=== PATIENT | male | born 1995 | race Two or more races ===

== ENCOUNTER 2018-05-20 05:46 | Inpatient (IN) | payer OTHER ==
[~2018-05-20] VITALS: Ht 170.2 cm; Wt 69.4 kg
--- NOTE | 2018-05-20 05:55 | NUR ---
Pt came to emergency dept. complaining of SOB, CP, that started about an hour ago. Pt states that his blood sugar has been up and down since his symptoms started. Pt states that he has type 2 diabetes and he has elevated BS of 378 at home. Pt states that he has had nausea,vomitting, and diarrhea on and off for the past week. Pt is AAXO4. Pt put on the monitor and pulse ox. Pt saturating 98% on the pulse ox. Pt pending eval from ER .
--- NOTE | 2018-05-20 06:07 | NUR ---
MARI LYNN AT BEDSIDE.
[2018-05-20] MEDS ORDERED: ONDANSETRON HCL/PF 4 MG/2 ML VIAL ONE (06:11)
[2018-05-20 06:27] LABS: BASOPHILS % (AUTO) 0.3 % (0.0-2.0); EOSINOPHILS % (AUTO) 0.2 % (0.0-6.0); HEMATOCRIT 53 % (39-51); HEMOGLOBIN 17.8 g/dL (13.5-17.5); LYMPHOCYTES # (AUTO) 0.9 /CMM (0.8-4.8); LYMPHOCYTES % (AUTO) 16.4 % (20.0-44.0); MEAN CORPUSCULAR HGB CONC 34 g/dl (31.0-36.0); MEAN CORPUSCULAR VOLUME 88 fL (80-96); MONOCYTES # (AUTO) 0.7 /CMM (0.1-1.30); MONOCYTES % (AUTO) 12.7 % (2.0-12.0); NEUTROPHILS # (AUTO) 3.8 /CMM (1.8-8.9); NEUTROPHILS % (AUTO) 70.4 % (43.0-81.0); PLATELET COUNT (AUTO) 285 /CMM (150-450); RED BLOOD CELL COUNT(AUTO) 6.04 MIL/uL (4.5-6.0); WHITE BLOOD COUNT (AUTO) 5.4 K/uL (4.3-11.0)
[2018-05-20] MEDS ORDERED: IV NS 0.9% 1,000 ML BAG IV ONE (06:30)
[2018-05-20] MEDS ORDERED: ONDANSETRON HCL/PF 4 MG/2 ML VIAL IVP ONE (06:30)
[2018-05-20] MEDS ORDERED: IV NS 0.9% 1,000 ML IV ONE (06:30)
--- NOTE | 2018-05-20 06:30 | NUR ---
Pt being monitored resting in bed, NAD noted. Unable to Urinate ER MD aware.
[2018-05-20 06:43] LABS: ALBUMIN 4.1 g/dL (3.4-5.0); BILIRUBIN,DIRECT 0.1 mg/dL (0.0-0.2); BILIRUBIN,TOTAL 0.6 mg/dL (0.2-1.0); CALCIUM, SERUM 9.7 mg/dL (8.5-10.1); CREATININE 1.8 mg/dL (0.6-1.3); POTASSIUM 3.9 mmol/L (3.5-5.1); TOTAL PROTEIN, SERUM 8.2 g/dL (6.4-8.2)
[2018-05-20] MEDS ORDERED: POTASSIUM CL. PREMIX PERIPHER. 50 ML ONE ×2 (06:49→07:43)
[2018-05-20] MEDS: POTASSIUM CL. PREMIX PERIPHER. 50 ML IV SCH ×4 (06:55→10:48)
--- NOTE | 2018-05-20 07:19 | NUR ---
RT at bedside for ABG.
[2018-05-20 07:21] LABS: ABG BASE EXCESS -7.7 mmol/L; ABG OXYGEN SATURATION 96.7 % (92.0-98.5); ABG PCO2 29.7 mmHg (35.0-45.0); ABG PH 7.356 (7.350-7.450); ABG PO2 93.2 mmHg (75.0-100.0); COHb 0.7 % (0.5-1.5); MetHb 0.5 % (0.0-1.5); O2Hb 95.5 % (94.0-97.0); SITE, ABG Right Radial; VENT MODE, BG room air
--- NOTE | 2018-05-20 07:33 | NUR ---
Report given to Noel BUSTAMANTE for CHARLES.
[2018-05-20 07:43] LABS: APPEARANCE,URINE CLEAR (CLEAR); BILIRUBIN,URINE 1+ (NEGATIVE); BLOOD, URINE NEGATIVE Ery/uL (NEGATIVE); COLOR,URINE YELLOW (YELLOW); KETONES,URINE 3+ (NEGATIVE); LEUKOCYTE ESTERASE ,URINE NEGATIVE (NEGATIVE); NITRITE, URINE NEGATIVE (NEGATIVE); PH,URINE 5.5 (5.0-8.0); PROTEIN,URINE NEGATIVE (NEGATIVE); UGLUCOSE 3+ mg/dL (NEGATIVE); UROBILINOGEN,URINE 0.2 EU/dL (0.2)
[2018-05-20] MEDS ORDERED: POTASSIUM CL. PREMIX PERIPHER. 100 ML ONE (07:47)
[2018-05-20 07:48] LABS: BACTERIA,URINE None seen /HPF (None Seen); RBC,URINE NONE SEEN /HPF (0-2); SQUAMOUS EPITHELIAL CELL,UR Few /HPF (None Seen); WBC,URINE 0-2 /HPF (0-3)
--- NOTE | 2018-05-20 07:48 | NUR ---
PANEL ON-CALL PAGED
[2018-05-20] MEDS ORDERED: INSU100I26 SQ (07:52)
[2018-05-20] MEDS ORDERED: INSU100I34 SQ (07:52)
--- NOTE | 2018-05-20 08:15 | NUR ---
DR. UP GAVE A VERBAL ORDER TO GIVE NS 250ML WITH POTASSIUM IV.
--- NOTE | 2018-05-20 08:22 | NUR ---
REPORT GIVEN TO YESENIA BUSTAMANTE IN ICU, PATIENT IS ASSIGN ROOM 258. Addendum: 05/20/18 at 0931 by MELIDA REPORT GIVEN TO KAITLIN BREWER, PATIENT RE-ASSIGNED TO ROOM 316.
[2018-05-20 08:24] LABS: CALCIUM, SERUM 8.3 mg/dL (8.5-10.1); CREATININE 1.4 mg/dL (0.6-1.3); POTASSIUM 4.4 mmol/L (3.5-5.1)
--- NOTE | 2018-05-20 08:25 | NUR ---
VERIFIED WITH DR. UP IF ITS OK TO GIVE THE REST OF THE POTASSIUM IV (2 BAGS) WITH POTASSIUM LEVEL OF 4.4. PER MD, ITS OK TO GIVE.
[2018-05-20] MEDS ORDERED: INSULIN REGULAR, HUMAN 100 UNIT/ML 10 ML VIAL SQ ONE (08:30)
--- NOTE | 2018-05-20 08:30 | NUR ---
ENDORSED 1 POTASSIUM IV BAG TO KAITLIN BUSTAMANTE.
[2018-05-20] MEDS ORDERED: INSULIN REGULAR, HUMAN 100 UNIT/ML 10 ML VIAL ONE (08:37)
[2018-05-20 09:45] VITALS: BP 138/77
--- NOTE | 2018-05-20 09:45 | NUR ---
STORYBOARD ARTISTCEMENT TRUCK DRIVER NOTE PT ARRIVED TO TELE UNIT IN STABLE CONDITION VIA GURNEY ACCOMPANIED BY 2 ER STAFF. PT IS A/O X4, AFEBRILE. RESPIRATIONS ARE EVEN AND UNLABORED, NOT IN ANY ACUTE DISTRESS NOTED. PUPILS ARE REACTIVE TO LIGHT. BILATERAL HAND RECORD CENTER COORDINATOR ARE STRONG AND EQUAL. DENIES ANY PAIN AT THIS TIME, NO C/O SOB, N/V. LAST URINATION WAS 0730, LAST BM 05/19 PM. PT REFUSES TO CHANGE IN GOWN AND DENIES ANY SKIN ISSUES. EXPLAINED THE IMPORTANCE OF DOING SKIN ASSESSMENT, PT STATED "I DONT HAVE ANYTHING WRONG WITH MY SKIN." IV SITE TO LAC G20 INTACT, NO INFILTRATION NOTED. CURRENTLY INFUSING KCL AND NS, TOLERATING WELL. DR. GARCIA AT BEDSIDE. INSTRUCTED PT TO USE CALL LIGHT WHEN ASSISTANCE IS NEEDED, CALL LIGHT IS LEFT WITHIN REACH. WILL MONITOR THROUGHOUT SHIFT FOR CONTINUITY OF CARE.
--- NOTE | 2018-05-20 09:48 | NUR ---
PATIENT TRANSFERRED TO ROOM 316 VIA ACLS PROTOCOL, ACCOMPANIED BY RN.
[2018-05-20] MEDS ORDERED: Z GUARD REMEDY 2 OZ OINT TP PRN (10:30)
[2018-05-20] MEDS ORDERED: MAG HYDROX/AL HYDROX/SIMETH 30 ML UDC PO PRN (10:30)
[2018-05-20] MEDS ORDERED: MAGNESIUM HYDROXIDE 30 ML UDC PO PRN (10:30)
[2018-05-20] MEDS ORDERED: Potassium Chloride 20 MEQ in IV NS 0.9% 1,000 ML IV SCH (10:30)
[2018-05-20] MEDS ORDERED: HYDROCODONE/APAP 5/325MG 1 EACH TABLET PO PRN (10:30)
[2018-05-20] MEDS ORDERED: DEXTROSE 50%-WATER 50 ML DISP.SYRIN IV PRN (10:30)
[2018-05-20] MEDS: BLOOD SUGAR DIAGNOSTIC 1 EACH STRIP IN SCH ×7 (10:30→23:21)
[2018-05-20] MEDS ORDERED: ACETAMINOPHEN 325 MG TABLET PO PRN (10:30)
--- NOTE | 2018-05-20 10:30 | NUR ---
FUR MACHINE OPERATOR NOTES-- CLARIFIED WITH ER NURSE AND ER DOCTOR RE: ADMINISTRATION OF KCL D/T K LEVEL 4.4. PER DR. UP AND ER NURSE ELIAZAR, "OKAY TO GIVE POTASSIUM." DR. GARCIA MADE AWARE AND STATED "OKAY TO GIVE." WILL CONTINUE TO MONITOR.
[2018-05-20 11:00] VITALS: BP 138/77
[2018-05-20] MEDS ORDERED: IV NS 0.9% 1,000 ML IV PRN (11:00)
[2018-05-20] MEDS: INSULIN REGULAR, HUMAN 100 UNIT/ML 3 ML VIAL SQ PRN ×3 (12:21→21:23)
[2018-05-20 16:00] VITALS: BP 138/87
[2018-05-20 16:04] LABS: CALCIUM, SERUM 8.4 mg/dL (8.5-10.1); CREATININE 1.3 mg/dL (0.6-1.3); POTASSIUM 3.8 mmol/L (3.5-5.1)
--- NOTE | 2018-05-20 17:25 | NUR ---
CENTER MEDICAL AND LAB DIRECTOR NOTES-- PER DR. GARCIA'S NOTES.. "start D5 1/2 NS once BG < 200." WILL START IV FLUIDS AND CONTINUE TO MONITOR.
[2018-05-20] MEDS ORDERED: IV D5/0.45 NACL 1,000 ML IV PRN (17:30)
--- NOTE | 2018-05-20 17:35 | NUR ---
LIFT OPERATOR NOTES-- CLARIFIED WITH DR. GARCIA RE: IV FLUIDS W/ NO EXACT RATE. PER DR. GARCIA, "JUST START AT 100ML/HR THEN CHANGE THE RATE" DEPENDING ON HIS BLOOD SUGAR AND TO REMAIN BG <200.
[2018-05-20] MEDS: IV D5/0.45 NACL 1,000 ML IV PRN (17:55)
[2018-05-20] MEDS ORDERED: IV D5/0.45 NACL 1,000 ML IV ONE (18:00)
--- NOTE | 2018-05-20 18:24 | NUR ---
MS RN CLOSING NOTES ALL DUE MEDS GIVEN, NEEDS MET AND ANTICIPATED. PT IS A/O X4, AFEBRILE. RESPIRATIONS ARE EVEN AND UNLABORED, NOT IN ANY ACUTE DISTRESS NOTED. DENIES ANY CHEST PAIN, SOB, N/V. IV SITE TO LAC INTACT, NO INFILTRATION NOTED. DRESSING KEPT CLEAN AND DRY. ON BLOOD SUGAR CHECKS Q2H, INSULIN Q4H. PT HAS BEEN COMPLIANT. SAFETY MEASURES ARE IN PLACE. REMINDED PT TO USE CALL LIGHT WHEN ASSISTANCE IS NEEDED, CALL LIGHT IS LEFT WITHIN REACH. WILL ENDORSE TO NEXT SHIFT FOR CONTINUITY OF CARE.
[2018-05-20] MEDS: ONDANSETRON HCL/PF 4 MG/2 ML VIAL IVP PRN (19:18)
--- NOTE | 2018-05-20 19:50 | NUR ---
MS RN NOTES-- PT C/O N/V AND LOOSE WATERY STOOLS. NOTIFIED OSMAN CRAWLEY W/ ORDERS FOR COLLECTION OF STOOL FOR CDIFF AND IMODIUM. OSMAN CRAWLEY CARRIED OUT ORDERS. PATIENT AND NIGHTSHIFT NURSE JOSUE MADE AWARE.
[2018-05-20 19:52] LABS: CALCIUM, SERUM 8.7 mg/dL (8.5-10.1); CREATININE 1.2 mg/dL (0.6-1.3); POTASSIUM 3.7 mmol/L (3.5-5.1)
[2018-05-20 20:00] VITALS: BP 143/78
--- NOTE | 2018-05-20 20:45 | NUR ---
RN NOTES SPOKE TO DENISA POTTER AND INFORMED HIM THAT PT. IS ASKING FOR SLEEPING PILL BUT PT IS NPO.. DENISA POTTER ORDERED THAT OK TO GIVEN PO MEDS WITH SIP OF WATER , ORDER NOTED AND CARRIED OUT
[2018-05-20] MEDS: ZOLPIDEM TARTRATE 5 MG TABLET PO PRN (21:16)
[2018-05-20] MEDS: LOPERAMIDE HCL (2 MG CAP) 2 MG CAPSULE PO PRN (21:22)
--- NOTE | 2018-05-20 21:25 | NUR ---
RN NOTES PT. BLOOD SUGAR-282.. SUPPOSED TO GIVE 12 UNITS OF INSULIN BUT PT. WELL THE PT'S MOTHER ONLY WANT ME TO GIVE 8 UNITS OF INSULIN
[2018-05-20 22:50] LABS: CALCIUM, SERUM 8.3 mg/dL (8.5-10.1); CREATININE 1.1 mg/dL (0.6-1.3); POTASSIUM 3.4 mmol/L (3.5-5.1)
--- NOTE | 2018-05-20 23:35 | NUR ---
RN NOTES DR. GARCIA ORDER BMP Q 4HRS .. POTASSIUM LEVEL FROM 3.7- 3.4 AT THIS TIME.. INFORMED DENISA THAKKAR-OSMAN ABOUT THE RESULT OF POTASSIUM -NO ORDER GIVEN AND WAIT FOR THE RESULT OF PT BMP AFTER 4 HRS AGAIN
[2018-05-21] VITALS: BP 125/58
[2018-05-21] MEDS: BLOOD SUGAR DIAGNOSTIC 1 EACH STRIP IN SCH ×9 (01:27→21:37)
--- NOTE | 2018-05-21 01:30 | NUR ---
RN NOTES PT BLOOD SUGAR 214- SUPPOSED TO BE GIVEN 8 UNITS OF INSULIN BUT PT WANT ONLY TO RECEIVED 7UNITS OF INSULIN
[2018-05-21] MEDS: INSULIN REGULAR, HUMAN 100 UNIT/ML 3 ML VIAL SQ PRN ×2 (01:35→05:36)
[2018-05-21] MEDS: IV D5/0.45 NACL 1,000 ML IV PRN (05:37)
[2018-05-21 06:22] LABS: BASOPHILS % (AUTO) 0.3 % (0.0-2.0); EOSINOPHILS % (AUTO) 1.8 % (0.0-6.0); HEMATOCRIT 44 % (39-51); HEMOGLOBIN 14.8 g/dL (13.5-17.5); LYMPHOCYTES # (AUTO) 1.9 /CMM (0.8-4.8); LYMPHOCYTES % (AUTO) 37.2 % (20.0-44.0); MEAN CORPUSCULAR HGB CONC 34 g/dl (31.0-36.0); MEAN CORPUSCULAR VOLUME 87 fL (80-96); MONOCYTES # (AUTO) 0.9 /CMM (0.1-1.30); MONOCYTES % (AUTO) 18.1 % (2.0-12.0); NEUTROPHILS # (AUTO) 2.2 /CMM (1.8-8.9); NEUTROPHILS % (AUTO) 42.6 % (43.0-81.0); PLATELET COUNT (AUTO) 223 /CMM (150-450); RED BLOOD CELL COUNT(AUTO) 5.05 MIL/uL (4.5-6.0); WHITE BLOOD COUNT (AUTO) 5.1 K/uL (4.3-11.0)
[2018-05-21 06:42] LABS: CALCIUM, SERUM 8.4 mg/dL (8.5-10.1); MAGNESIUM 1.7 mg/dL (1.8-2.4); PHOSPHORUS 3.2 mg/dL (2.5-4.9); POTASSIUM 3.2 mmol/L (3.5-5.1)
[2018-05-21 06:56] LABS: BAND % (MANUAL) 5 % (0.0-5.0); EOSINOPHILS % (MANUAL) 3 % (0-4); LYMPHOCYTES % (MANUAL) 25 % (16-48); MONOCYTES % (MANUAL) 21 % (0-11.0); NEUTROPHILS % (MANUAL) 46 (42-76)
--- NOTE | 2018-05-21 06:57 | NUR ---
RN NOTES AWAKE, DENIES PAIN, NO SOB, STILL CONCERNED REGARDING HIS BLOOD SUGAR STILL FLUCTUATING, MORNING CARE RENDERED, DENIES PAIN, NO SOB, PT. NEEDS ATTENDED
[2018-05-21 07:00] LABS: CHOLESTEROL 150 mg/dL (<200); HDL CHOLESTEROL 39 mg/dL (40-60); LDL 90 mg/dL (0-99); TRIGLYCERIDES 159 mg/dL (30-150)
--- NOTE | 2018-05-21 07:44 | NUR ---
FLORIST MANAGER OPENING NOTES RECEIVED PT LAYING IN BED, RESTING. PT IS A/O X4, AFEBRILE. RESPIRATIONS ARE EVEN AND UNLABORED, NOT IN ANY ACUTE DISTRESS NOTED. DENIES ANY CHEST PAIN, N/V, SOB AT THIS TIME. IV SITE TO LAC INTACT, NO INFILTRATION NOTED. DRESSING KEPT CLEAN AND DRY. IV FLUIDS RUNNING AT 75ML/HR, TOLERATING WELL. SAFETY MEASURES ARE IN PLACE. INSTRUCTED PT TO USE CALL LIGHT WHEN ASSISTANCE IS NEEDED, CALL LIGHT IS LEFT WITHIN REACH. WILL MONITOR THROUGHOUT SHIFT FOR CONTINUITY OF CARE.
[2018-05-21 08:00] VITALS: BP 130/80
--- NOTE | 2018-05-21 08:30 | NUR ---
AGRICULTURAL CHEMIST NOTES-- PT WAS SEEN AND EXAMINED BY DR. RADHA Coppola/ ORDERS CARRIED OUT.
[2018-05-21] MEDS ORDERED: Magnesium 1GM/D5W 100ML PREMIX 100 ML IV SCH (09:00)
[2018-05-21] MEDS ORDERED: POTASSIUM CHLORIDE 20 MEQ TAB.PRT.SR PO ONE (09:00)
[2018-05-21] MEDS ORDERED: INSULIN LISPRO/ASPART 100 UNIT/ML CARTRIDGE SQ SCH ×4 (09:00→12:00)
[2018-05-21] MEDS: POTASSIUM CL. PREMIX PERIPHER. 50 ML IV SCH ×4 (09:34→12:55)
[2018-05-21] MEDS: Magnesium 1GM/D5W 100ML PREMIX 100 ML IV SCH ×2 (09:35→10:33)
[2018-05-21] MEDS: INSULIN ASPART/LISPRO 100 UNIT/ML CARTRIDGE SQ PRN ×3 (11:16→22:24)
[2018-05-21] MEDS: ONDANSETRON HCL/PF 4 MG/2 ML VIAL IVP PRN (11:58)
[2018-05-21 16:00] VITALS: BP 141/81
--- NOTE | 2018-05-21 18:08 | NUR ---
MS RN CLOSING NOTES ALL DUE MEDS GIVEN, NEEDS MET AND ANTICIPATED. PT IS A/O X4, AFEBRILE. RESPIRATIONS ARE EVEN AND UNLABORED, NOT IN ANY ACUTE DISTRESS NOTED. DENIES ANY CHEST PAIN, SOB, N/V. IV SITE TO LAC INTACT, NO INFILTRATION NOTED. DRESSING KEPT CLEAN AND DRY. SAFETY MEASURES ARE IN PLACE. ENCOURAGED PT TO DRINK FLUIDS TOLERATED. REMINDED PT TO USE CALL LIGHT WHEN ASSISTANCE IS NEEDED, CALL LIGHT IS LEFT WITHIN REACH. WILL ENDORSE TO NEXT SHIFT FOR CONTINUITY OF CARE.
--- NOTE | 2018-05-21 19:20 | NUR ---
MS RN NOTES RECEIVED PT ALERT AND AWAKE IN BED WITH FAMILY AT BEDSIDE. PT IS A/O X4 AND ABLE TO MAKE NEEDS KNOWN. BREATHING EVEN AND UNLABORED WITH NO S/S OF ACUTE DISTRESS OR SOB NOTED. IV IN LAC #20G PATENT AND INTACT. ENCOURAGED FLUIDS TOLERATED. SAFETY MEASURES ARE IN PLACE. CALL LIGHT WITHIN REACH. WILL CONTINUE TO MONITOR.
[2018-05-21 20:00] VITALS: BP 148/78
[2018-05-21] MEDS ORDERED: INSULIN GLARGINE, 100 UNIT/ML CARTRIDGE SQ SCH (22:00)
[2018-05-21] MEDS: ZOLPIDEM TARTRATE 5 MG TABLET PO PRN (22:23)
[2018-05-21] MEDS: LOPERAMIDE HCL (2 MG CAP) 2 MG CAPSULE PO PRN (22:23)
[2018-05-22] MEDS: INSULIN ASPART/LISPRO 100 UNIT/ML CARTRIDGE SQ PRN ×2 (01:21→05:45)
[2018-05-22] MEDS: BLOOD SUGAR DIAGNOSTIC 1 EACH STRIP IN SCH ×3 (01:25→08:34)
--- NOTE | 2018-05-22 06:38 | NUR ---
MS RN NOTES PT IN BED ASLEEP BUT EASILY AWOKEN VERBALLY OR BY TOUCH. PT CONTINENT WITH SKIN INTACT. WITH FAMILY AT BEDSIDE. PT IS A/O X4 AND ABLE TO MAKE NEEDS KNOWN. BLOOD GLUCOSE 151 @ 2130 - 2 UNITS GIVEN, 192 @ 0108 - 4 UNITS GIVEN, 234 @ 0541 - 8 UNITS GIVEN. BREATHING EVEN AND UNLABORED WITH NO S/S OF ACUTE DISTRESS OR SOB NOTED. IV IN LAC #20G PATENT AND INTACT. D/C PLANNING HOME. ENCOURAGED FLUIDS TOLERATED. SAFETY MEASURES ARE IN PLACE. CALL LIGHT WITHIN REACH. WILL ENDORSE TO ONCOMING NURSE FOR CONTINUATION OF CARE.
[2018-05-22 07:19] LABS: BASOPHILS % (AUTO) 0.3 % (0.0-2.0); EOSINOPHILS % (AUTO) 1.6 % (0.0-6.0); HEMATOCRIT 43 % (39-51); HEMOGLOBIN 14.4 g/dL (13.5-17.5); LYMPHOCYTES % (AUTO) 30.9 % (20.0-44.0); MEAN CORPUSCULAR HGB CONC 34 g/dl (31.0-36.0); MEAN CORPUSCULAR VOLUME 87 fL (80-96); MONOCYTES # (AUTO) 1.1 /CMM (0.1-1.30); MONOCYTES % (AUTO) 17.4 % (2.0-12.0); NEUTROPHILS # (AUTO) 3.2 /CMM (1.8-8.9); NEUTROPHILS % (AUTO) 49.8 % (43.0-81.0); PLATELET COUNT (AUTO) 218 /CMM (150-450); RED BLOOD CELL COUNT(AUTO) 4.91 MIL/uL (4.5-6.0); WHITE BLOOD COUNT (AUTO) 6.4 K/uL (4.3-11.0)
[2018-05-22 07:22] LABS: CALCIUM, SERUM 8.2 mg/dL (8.5-10.1); CREATININE 0.9 mg/dL (0.6-1.3); POTASSIUM 3.6 mmol/L (3.5-5.1)
--- NOTE | 2018-05-22 07:41 | NUR ---
MS/RN OPENING NOTE PATIENT IN BED IN STABLE CONDITION. A/O X 4. NO SIGNS OF ACUTE DISTRESS. NO COMPLAIN OF PAIN OR DISCOMFORT. ALL NEEDS ATTENDED TO. CALL LIGHT WITHIN REACH. WILL CONTINUE TO MONITOR TO ENSURE SAFETY.
[2018-05-22 08:00] VITALS: BP 132/80
[2018-05-22] MEDS ORDERED: INSU100I34 SQ (08:47)
[2018-05-22 09:07] LABS: BAND % (MANUAL) 5 % (0.0-5.0); LYMPHOCYTES % (MANUAL) 26 % (16-48); MONOCYTES % (MANUAL) 14 % (0-11.0); NEUTROPHILS % (MANUAL) 55 (42-76)
--- NOTE | 2018-05-22 11:43 | NUR ---
MS/COMPUTER SYSTEMS SOFTWARE ENGINEER PATIENT DISCHARGE HOME IN STABLE CONDITION. A/O X 4. NO SIGNS OF ACUTE DISTRESS. NO COMPLAIN OF PAIN OR DISCOMFORT. DISCHARGE EDUCATION AND TEACHINGS PROVIDED, VERBALIZED UNDERSTANDING. MADE AWARE TO FOLLOW UP WITH PRIMARY PHYSICIAN AND ARC CUTTER WITHIN A WEEK. JORDYN COFFEE BLENDER NOTIFIED REGARDING ARC CUTTER REFERENCE. ALL NEEDS ATTENDED TO. NAME BAND AND IV LINE REMOVED. LEFT IN STABLE CONDITION VIA PRIVATE CAR ACCOMPANIED BY MOTHER.
== END 2018-05-22 11:10 | disposition home or self-care (01) | DRG 420 ==
LOC: ER 05:50 → ICU 07:56 → TELE 08:49 → MED 05-21 08:51
PROVIDERS: ADMIT Family Medicine; ATTEND Family Medicine
DX: E10.10 Type 1 diabetes mellitus with ketoacidosis without coma (principal); N17.0 Acute kidney failure with tubular necrosis; D75.1 Secondary polycythemia; E87.1 Hypo-osmolality and hyponatremia; Z79.4 Long term (current) use of insulin; Z80.0 Family history of malignant neoplasm of digestive organs; E86.1 Hypovolemia; Z72.0 Tobacco use; E86.9 Volume depletion, unspecified
CPT/HCPCS: 36415; 36600; 71045-TC; 80048-TC; 80061-TC; 80076-TC; 81000-TC; 82010-TC; 82803-TC; 82962-TC; 83690-TC; 83735-TC; 84100-TC; 85025-TC; 87081-TC; 87400; G0378; J1815; J2405; J3475; J3480; J3490; J7030

== ENCOUNTER 2021-08-11 17:22 | Inpatient (IN) | payer OTHER ==
[~2021-08-11] VITALS: Ht 172.7 cm; Wt 66.7 kg
[~2021-08-11 17:22] MED LIST: INSU100I26 SQ; INSU100I34 SQ
--- NOTE | 2021-08-11 17:27 | NUR ---
IV LINE IS ESTABLISHED, BLOOD SPECIMEN COLLECTED AND SENT TO THE LAB. THE LINE IS SALINE LOCKED.
--- NOTE | 2021-08-11 17:30 | NUR ---
BIB MOM C/O SHARP, MID-STERNAL CHEST PAIN 6/10 AND ANXIETY ATTACK STARTED 30 MINS HAND TOOL LAPPER PER PT THEY JUST WALKING AND STARTED TO HAVE SOB. IN ROOM AIR AND DENIES SOB. ATTACHED THE PATIENT TO THE MONITOR. WILL CONTINUE TO MONITOR THE PATIENT.
--- NOTE | 2021-08-11 17:33 | NUR ---
UNABLE TO PROVIDE URINE AT THIS TIME
[2021-08-11 17:53] LABS: BASOPHILS % (AUTO) 0.5 % (0.0-2.0); EOSINOPHILS % (AUTO) 0.6 % (0.0-6.0); HEMATOCRIT 49 % (39-51); HEMOGLOBIN 16.4 g/dL (13.5-17.5); LYMPHOCYTES % (AUTO) 34.5 % (20.0-44.0); MEAN CORPUSCULAR HGB CONC 34 g/dl (31.0-36.0); MEAN CORPUSCULAR VOLUME 91 fL (80-96); MONOCYTES # (AUTO) 0.7 K/uL (0.1-1.30); MONOCYTES % (AUTO) 7.6 % (2.0-12.0); NEUTROPHILS % (AUTO) 56.8 % (43.0-81.0); PLATELET COUNT (AUTO) 348 K/uL (150-450); RED BLOOD CELL COUNT(AUTO) 5.37 MIL/uL (4.5-6.0); WHITE BLOOD COUNT (AUTO) 8.8 K/uL (4.3-11.0)
--- NOTE | 2021-08-11 17:58 | NUR ---
SLEEP LAB TECHNICIAN AT BEDSIDE
[2021-08-11 18:14] LABS: CALCIUM, SERUM 9.4 mg/dL (8.5-10.1); CARBON DIOXIDE 15 mmol/L (21-32); CHLORIDE 93 mmol/L (98-107); CREATININE 1.5 mg/dL (0.6-1.3); POTASSIUM 3.9 mmol/L (3.5-5.1); SODIUM SERUM 132 mmol/L (136-145); UREA NITROGEN, BLOOD 17 mg/dL (7-18)
[2021-08-11 18:17] LABS: GLUCOSE 404 mg/dL (74-106)
--- NOTE | 2021-08-11 18:17 | NUR ---
LAB CALLED 404 DR. MARRERO AWARE.
[2021-08-11 18:21] LABS: ALANINE AMINOTRANSFERASE 43 U/L (12-78); ALBUMIN 4.1 g/dL (3.4-5.0); ALKALINE PHOSPHATASE 93 U/L (46-116); ASPARTATE AMINOTRANSFERASE 25 U/L (15-37); BILIRUBIN,DIRECT 0.2 mg/dL (0.0-0.2); BILIRUBIN,TOTAL 1.1 mg/dL (0.2-1.0); TOTAL PROTEIN, SERUM 7.8 g/dL (6.4-8.2)
[2021-08-11] MEDS ORDERED: IV NS 0.9% 1,000 ML BAG IV ONE (18:30)
--- NOTE | 2021-08-11 18:49 | NUR ---
ASKED ADMITTING TO PLACE THE PATIENT IS TRANSITION. PHARMACY IS MADE AWARE TO VERIFY INSULIN DRIP ORDER.
[2021-08-11 18:50] LABS: ABG BASE EXCESS -13.2 mmol/L; ABG PH 7.298 (7.350-7.450); ABG PO2 103.1 mmHg (75.0-100.0); COHb 2.2 % (0.5-1.5); MetHb 0.4 % (0.0-1.5); SITE, ABG Left Radial; VENT MODE, BG 21% RM
[2021-08-11] MEDS ORDERED: INSULIN REGULAR, HUMAN 100 UNIT in IV NS 0.9% 99 ML IV PRN ×2 (19:00)
[2021-08-11] MEDS ORDERED: ONDANSETRON HCL/PF 4 MG/2 ML VIAL IVP PRN (19:00)
[2021-08-11] MEDS ORDERED: ZOLPIDEM TARTRATE 5 MG TABLET PO PRN (19:00)
[2021-08-11] MEDS ORDERED: ACETAMINOPHEN 325 MG TABLET PO PRN (19:00)
[2021-08-11] MEDS ORDERED: MAG HYDROX/AL HYDROX/SIMETH 30 ML UDC PO PRN (19:00)
--- NOTE | 2021-08-11 19:22 | NUR ---
LAB CALLED [facility] 5.5 DR. MARRERO NOTIFIED.
[2021-08-11] MEDS ORDERED: MORPHINE SULFATE INJ 2 MG/ML DISP.SYRIN ONE (19:25)
--- NOTE | 2021-08-11 19:25 | NUR ---
REPORT GIVEN TO NURSE EDUARDO
[2021-08-11] MEDS ORDERED: MORPHINE SULFATE INJ 2 MG/ML DISP.SYRIN IV ONE (19:30)
--- NOTE | 2021-08-11 19:50 | NUR ---
RECEIVED REPORT FROM TOMI BUSTAMANTE FOR CHARLES
--- NOTE | 2021-08-11 19:52 | NUR ---
PT IS RESTING COMFORTABLY IN BED, PROVIDED PT WITH WARM BLANKETS, WILL CONTINUE TO MONITOR.
[2021-08-11] MEDS: IV NS 0.9% 1,000 ML IV PRN ×2 (20:00→22:21)
--- NOTE | 2021-08-11 21:02 | NUR ---
ACCKALPESH 313, WILL TRITRATE PER MD ORDERS.
--- NOTE | 2021-08-11 21:13 | NUR ---
LAB AT BEDSIDE
--- NOTE | 2021-08-11 21:55 | NUR ---
COVID ANTIGEN SWAB COLLECTED AND SENT TO LAB
--- NOTE | 2021-08-11 22:05 | NUR ---
ACCUCHECK 190, WILL TRITRATE PER MD ORDERS
--- NOTE | 2021-08-11 22:10 | NUR ---
PT AMBULATED TO BATHROOM, STEADY GAIT NOTED
--- NOTE | 2021-08-11 23:00 | NUR ---
ACCUCHECK 138, WILL TRATRATE PER MDS ORDERS.
--- NOTE | 2021-08-12 00:17 | NUR ---
DEVYN Jang MD MADE AWARE
[2021-08-12] MEDS ORDERED: IV PREMIX D5 1/2NS + KCL 1,000 ML IV PRN (01:00)
[2021-08-12] MEDS ORDERED: IV PREMIX D5 1/2NS + KCL 1,000 ML IV ONE (01:10)
[2021-08-12 01:33] LABS: CALCIUM, SERUM 8.1 mg/dL (8.5-10.1); CREATININE 1.1 mg/dL (0.6-1.3); POTASSIUM 4.2 mmol/L (3.5-5.1)
--- NOTE | 2021-08-12 01:51 | NUR ---
CALLED AGATHA OWEN THE HOSPITALIST AND RELAYED THE BMP TO HIM. ROVING SIZER WITH A NEW ORDER TO RESUME THE INSULIN DRIP AT 1UNIT/HR ALONG WITH THE IVF FLUID OF D5W1/2NS W/ KCL ORDERED AND REPEAT BMP IN AM. NEW ORDERS NOTED . WILL CONT TO MONITOR
--- NOTE | 2021-08-12 02:59 | NUR ---
PT VERBALIZES HAVING HEADACHE, PAIN 4/10 ON P/S. WILL PROVIDE PRN PAIN MEDS.
[2021-08-12] MEDS ORDERED: ACETAMINOPHEN 325 MG TABLET ONE (03:02)
--- NOTE | 2021-08-12 03:05 | NUR ---
PT DID NOT WANT TYLENOL, STATES "GIVES ME DIARRHIA". DOES NOT WANT ANY PAIN MEDS ANYMORE
--- NOTE | 2021-08-12 04:40 | NUR ---
PT IS RESTING COMFORTABLY IN BED, ASLEEP BUT EASILY AROUSABLE. WILL CONTINUE TO MONITOR.
--- NOTE | 2021-08-12 04:58 | NUR ---
CHILD CARE LEAD TEACHER AT PT'S BEDSIDE
[2021-08-12 05:15] LABS: BASOPHILS % (AUTO) 0.3 % (0.0-2.0); EOSINOPHILS % (AUTO) 0.8 % (0.0-6.0); HEMATOCRIT 43 % (39-51); HEMOGLOBIN 14.4 g/dL (13.5-17.5); LYMPHOCYTES # (AUTO) 2.2 K/uL (0.8-4.8); LYMPHOCYTES % (AUTO) 24.9 % (20.0-44.0); MEAN CORPUSCULAR HGB CONC 33 g/dl (31.0-36.0); MEAN CORPUSCULAR VOLUME 91 fL (80-96); MONOCYTES # (AUTO) 0.7 K/uL (0.1-1.30); MONOCYTES % (AUTO) 7.6 % (2.0-12.0); NEUTROPHILS # (AUTO) 5.7 K/uL (1.8-8.9); NEUTROPHILS % (AUTO) 66.4 % (43.0-81.0); PLATELET COUNT (AUTO) 281 K/uL (150-450); RED BLOOD CELL COUNT(AUTO) 4.76 MIL/uL (4.5-6.0); WHITE BLOOD COUNT (AUTO) 8.6 K/uL (4.3-11.0)
[2021-08-12 05:38] LABS: CALCIUM, SERUM 7.8 mg/dL (8.5-10.1); CREATININE 1.2 mg/dL (0.6-1.3); MAGNESIUM 1.9 mg/dL (1.8-2.4); PHOSPHORUS 3.8 mg/dL (2.5-4.9); POTASSIUM 4.2 mmol/L (3.5-5.1)
--- NOTE | 2021-08-12 06:06 | NUR ---
ACCUCHECK 211, WILL TITRATE PER MD ORDERS.
--- NOTE | 2021-08-12 07:31 | NUR ---
ACCUCHECK 128, WILL TITRATE PER MD ORDERS.
[2021-08-12] MEDS ORDERED: INSU100I40 SQ (08:32)
--- NOTE | 2021-08-12 08:42 | NUR ---
ACCUCHECK 106, INSULIN DRIP TITRATED DOWN PER MD ORDERS.
--- NOTE | 2021-08-12 09:03 | NUR ---
PHLEB AT BEDSIDE FOR BLOOD DRAW.
[2021-08-12] MEDS ORDERED: INSU100V7 SQ (09:08)
--- NOTE | 2021-08-12 09:23 | NUR ---
[facility] in [place] - 08/12/21 at 0932 by WALT CALLED NURSING SUP FOR ROOM AND WAS NOTIFIED THAT THERE WAS NO AVAILABLE BEDS
[2021-08-12 09:29] LABS: CALCIUM, SERUM 7.9 mg/dL (8.5-10.1); CREATININE 1.1 mg/dL (0.6-1.3); POTASSIUM 3.7 mmol/L (3.5-5.1)
--- NOTE | 2021-08-12 11:16 | NUR ---
Patient does not wish to proceed with medical care recommended by jenny BREWER. Patient given information related to possible complications, up to and including , which could occur as a result of leaving the hospital at this time. Patient verbalizes understanding of risks involved due to leaving against medical advice. Patient has signed AMA form.
[2021-08-12 11:57] VITALS: BP 127/74
--- NOTE | 2021-08-12 11:57 | NUR ---
Note naveen in ED - 08/12/21 at 1157 by THALIA Patient does not wish to proceed with medical care recommended by Dr. Fox. Patient given information related to possible complications, up to and including , which could occur as a result of leaving the hospital at this time. Patient verbalizes understanding of risks involved due to leaving against medical advice. Patient has signed AMA form.
[2021-08-12] MEDS ORDERED: INSULIN REGULAR, HUMAN 100 UNIT/ML 3 ML VIAL SQ PRN (12:00)
[2021-08-12] MEDS ORDERED: BLOOD SUGAR DIAGNOSTIC 1 EACH STRIP IN SCH (12:00)
[2021-08-12] MEDS ORDERED: DEXTROSE 50%-WATER 50 ML DISP.SYRIN IV PRN (12:00)
[2021-08-12] MEDS ORDERED: *INSULIN REGULAR(HUMULIN R)HUM 100 UNIT/ML VIAL SQ PRN (22:00)
[2021-08-12] MEDS ORDERED: INSULIN GLARGINE, 100 UNIT/ML CARTRIDGE SQ SCH (22:00)
== END 2021-08-12 11:16 | disposition left against medical advice (07) | DRG 420 ==
LOC: ER 17:23 → TRANSITION 21:33
PROVIDERS: ADMIT Nurse Practitioner Acute Care; ATTEND Nurse Practitioner Acute Care
DX: E10.10 Type 1 diabetes mellitus with ketoacidosis without coma (principal); N17.0 Acute kidney failure with tubular necrosis; E87.1 Hypo-osmolality and hyponatremia; Z79.4 Long term (current) use of insulin; Z20.822 Contact with and (suspected) exposure to COVID-19; E86.1 Hypovolemia; E78.5 Hyperlipidemia, unspecified; F17.200 Nicotine dependence, unspecified, uncomplicated; Z53.29 Procedure and treatment not carried out because of patient's decision for other reasons
CPT/HCPCS: 36415; 36600; 71045-TC; 80048-TC; 80061-TC; 80076-TC; 82010-TC; 82803-TC; 82962-TC; 83605-TC; 83735-TC; 84100-TC; 84484-TC; 85025-TC; 87040-TC; 87081-TC; G0378; G0480; J1815; J2270; J2405; J3490; J7030

== ENCOUNTER 2022-04-18 11:40 | Inpatient (IN) | payer OTHER ==
[~2022-04-18] VITALS: Ht 172.7 cm; Wt 70.3 kg
[2022-04-18] VITALS (8 sets, daily range): BP systolic 143–150; BP diastolic 86–102
[~2022-04-18 11:40] MED LIST changes: -INSU100I26 SQ; -INSU100I34 SQ; +INSU100I40 SQ; +INSU100V7 SQ
[2022-04-18] MEDS ORDERED: IV NS 0.9% 1,000 ML BAG IV ONE (12:30)
[2022-04-18 12:33] LABS: BASOPHILS % (AUTO) 0.4 % (0.0-2.0); EOSINOPHILS % (AUTO) 0.3 % (0.0-6.0); HEMATOCRIT 51 % (39-51); HEMOGLOBIN 16.7 g/dL (13.5-17.5); LYMPHOCYTES # (AUTO) 5.3 K/uL (0.8-4.8); LYMPHOCYTES % (AUTO) 46.6 % (20.0-44.0); MEAN CORPUSCULAR HGB CONC 33 g/dl (31.0-36.0); MEAN CORPUSCULAR VOLUME 91 fL (80-96); MONOCYTES # (AUTO) 1.3 K/uL (0.1-1.30); MONOCYTES % (AUTO) 11.6 % (2.0-12.0); NEUTROPHILS # (AUTO) 4.7 K/uL (1.8-8.9); NEUTROPHILS % (AUTO) 41.1 % (43.0-81.0); PLATELET COUNT (AUTO) 286 K/uL (150-450); RED BLOOD CELL COUNT(AUTO) 5.57 MIL/uL (4.5-6.0); WHITE BLOOD COUNT (AUTO) 11.4 K/uL (4.3-11.0)
[2022-04-18 12:53] LABS: ALANINE AMINOTRANSFERASE 182 U/L (12-78); ALBUMIN 3.8 g/dL (3.4-5.0); ALKALINE PHOSPHATASE 122 U/L (46-116); ASPARTATE AMINOTRANSFERASE 71 U/L (15-37); BILIRUBIN,DIRECT 0.2 mg/dL (0.0-0.2); BILIRUBIN,TOTAL 0.6 mg/dL (0.2-1.0); CALCIUM, SERUM 9.4 mg/dL (8.5-10.1); CARBON DIOXIDE 15 mmol/L (21-32); CHLORIDE 90 mmol/L (98-107); CREATININE 1.5 mg/dL (0.6-1.3); LIPASE 128 U/L (73-393); POTASSIUM 3.7 mmol/L (3.5-5.1); SODIUM SERUM 131 mmol/L (136-145); TOTAL PROTEIN, SERUM 8.1 g/dL (6.4-8.2); UREA NITROGEN, BLOOD 17 mg/dL (7-18)
[2022-04-18 13:02] LABS: GLUCOSE 482 mg/dL (74-106)
[2022-04-18 13:49] LABS: ABG BASE EXCESS -7.1 mmol/L; ABG OXYGEN SATURATION 96.6 % (92.0-98.5); ABG PCO2 33.7 mmHg (35.0-45.0); ABG PH 7.337 (7.350-7.450); ABG PO2 95.2 mmHg (75.0-100.0); AaDO2 14.2 mmHg; COHb 2.4 % (0.5-1.5); MetHb 0.3 % (0.0-1.5); SITE, ABG Right Radial; VENT MODE, BG ROOM AIR
[2022-04-18] MEDS ORDERED: IV NS W/30MEQ KCL 1L IV SCH ×2 (14:00)
[2022-04-18] MEDS: INS (REG) DRIP 100 U/100 ML NS IV PRN ×4 (14:20→16:47)
[2022-04-18] MEDS ORDERED: MAGNESIUM HYDROXIDE 30 ML UDC PO PRN (15:30)
[2022-04-18] MEDS ORDERED: ACETAMINOPHEN 650 MG/SUPP.RECT RC PRN (15:30)
[2022-04-18] MEDS ORDERED: MAG HYDROX/AL HYDROX/SIMETH 30 ML UDC PO PRN (15:30)
[2022-04-18] MEDS ORDERED: ONDANSETRON HCL/PF 4 MG/2 ML VIAL IVP PRN ×2 (15:30)
[2022-04-18] MEDS ORDERED: ACETAMINOPHEN 325 MG TABLET PO PRN (15:30)
[2022-04-18] MEDS ORDERED: IV NS 0.9% 1,000 ML IV SCH (15:30)
[2022-04-18] MEDS ORDERED: Z GUARD REMEDY 4 OZ OINT TP PRN (15:30)
[2022-04-18] MEDS ORDERED: HYDROCODONE/APAP 5/325MG TABLET PO ONE (16:00)
[2022-04-18] MEDS ORDERED: HYDROCODONE/APAP 10/325MG TABLET PO ONE (16:00)
[2022-04-18] MEDS ORDERED: HYDROCODONE/APAP 10/325MG TABLET ONE (16:10)
[2022-04-18] MEDS ORDERED: INSULIN REGULAR, HUMAN 100 UNIT in IV NS 0.9% 99 ML IV PRN ×2 (16:30)
[2022-04-18] MEDS: BLOOD SUGAR DIAGNOSTIC 1 EACH STRIP IN SCH ×7 (17:04→23:04)
[2022-04-18] MEDS ORDERED: MENTHOL/CETYLPYRD (CEPACOL) 1 LOZ LOZENGE PO PRN (17:30)
[2022-04-18] MEDS ORDERED: predniSONE 20 MG TABLET PO SCH (18:00)
[2022-04-18 18:04] LABS: CREATININE 1.1 mg/dL (0.6-1.3); POTASSIUM 4.1 mmol/L (3.5-5.1)
[2022-04-18] MEDS ORDERED: IBUPROFEN 600 MG TABLET PO PRN (18:30)
[2022-04-18] MEDS ORDERED: CEFTRIAXONE 1 G in IV D5W 50 ML IV SCH (19:00)
[2022-04-18 23:34] LABS: CALCIUM, SERUM 8.1 mg/dL (8.5-10.1); POTASSIUM 3.9 mmol/L (3.5-5.1)
== END 2022-04-19 05:45 | disposition left against medical advice (07) | DRG 420 ==
LOC: ER 11:40 → ICU 16:00
PROVIDERS: ADMIT Internal Medicine; ATTEND Internal Medicine
DX: E10.10 Type 1 diabetes mellitus with ketoacidosis without coma (principal); N17.0 Acute kidney failure with tubular necrosis; E87.1 Hypo-osmolality and hyponatremia; F17.200 Nicotine dependence, unspecified, uncomplicated; R07.89 Other chest pain; Z20.822 Contact with and (suspected) exposure to COVID-19; Z79.4 Long term (current) use of insulin; Z28.310 Unvaccinated for COVID-19; Z80.9 Family history of malignant neoplasm, unspecified; E86.1 Hypovolemia; E87.6 Hypokalemia; Z53.29 Procedure and treatment not carried out because of patient's decision for other reasons; R74.01 Elevation of levels of liver transaminase levels
CPT/HCPCS: 36415; 36600; 71045-TC; 80048-TC; 80076-TC; 82010-TC; 82803-TC; 82962-TC; 83690-TC; 84484-TC; 85025-TC; 86403-TC; 87081-TC; C9803; G0378; J0696; J1815; J3480; J7030; J7060

== ENCOUNTER 2024-08-16 11:43 | Emergency (ER) | payer MEDICAID, OTHER | END 2024-08-16 13:01 | disposition left against medical advice (07) | LOC: ER 11:50 | DX: L02.01 Cutaneous abscess of face (principal); Z53.21 Procedure and treatment not carried out due to patient leaving prior to being seen by health care provider ==